=== PATIENT | female | born 2000 | race Caucasian/White ===

== ENCOUNTER 2023-04-24 20:11 | Emergency (ER) | payer OTHER ==
[~2023-04-24] VITALS: Ht 162.6 cm; Wt 90.9 kg
[2023-04-24 20:19] VITALS: TEMP 98.2
[2023-04-24] MEDS ORDERED: DOXYCYCLINE 10100 MG PO (20:37)
[2023-04-24 20:51] VITALS: BP 124/70; PULSE 60
== END 2023-04-24 20:51 | disposition home or self-care (01) ==
LOC: COL.ER 20:11
DX: T20.26XA Burn of second degree of forehead and cheek, initial encounter (principal); T22.211A Burn of second degree of right forearm, initial encounter; T22.212A Burn of second degree of left forearm, initial encounter; Z88.1 Allergy status to other antibiotic agents; Z28.310 Unvaccinated for COVID-19; X10.2XXA Contact with fats and cooking oils, initial encounter; Y93.G3 Activity, cooking and baking